=== PATIENT | female | born 1955 | race Native Hawaiian/Other Pacific Islander ===

== ENCOUNTER 2016-08-20 12:49 | Outpatient (CLI) | payer OTHER | END 2016-08-20 19:15 | disposition home or self-care (01) | LOC: MAMMO 12:49 | DX: Z12.31 Encounter for screening mammogram for malignant neoplasm of breast (principal) | CPT/HCPCS: G0202-TC ==

== ENCOUNTER 2016-11-04 13:09 | Outpatient (CLI) | payer OTHER ==
[2016-11-04 13:26] LABS: PLATELET COUNT 193 K/uL (152-353)
[2016-11-04 13:58] LABS: POTASSIUM 4.5 mmol/L (3.6-5.2); SODIUM 138 mmol/L (136-145)
== END 2016-11-04 20:00 | disposition home or self-care (01) ==
LOC: LAB 13:09
PROVIDERS: Nurse Practitioner Family
DX: Z00.00 Encounter for general adult medical examination without abnormal findings (principal); E78.4 Other hyperlipidemia; Z79.899 Other long term (current) drug therapy; E55.9 Vitamin D deficiency, unspecified; C34.90 Malignant neoplasm of unspecified part of unspecified bronchus or lung
CPT/HCPCS: 80053; 80061; 82306; 82607; 83036; 84439; 84443; 85027

== ENCOUNTER 2017-01-21 13:38 | Outpatient (CLI) | payer OTHER ==
[2017-01-21 14:02] LABS: PLATELET COUNT 226 K/uL (152-353)
[2017-01-21 14:27] LABS: POTASSIUM 4.4 mmol/L (3.6-5.2)
== END 2017-01-21 19:04 | disposition home or self-care (01) ==
LOC: LAB 13:38
PROVIDERS: Nurse Practitioner Family
DX: E78.4 Other hyperlipidemia (principal); K21.9 Gastro-esophageal reflux disease without esophagitis; E65 Localized adiposity; Z71.6 Tobacco abuse counseling; M81.0 Age-related osteoporosis without current pathological fracture; Z79.899 Other long term (current) drug therapy; Z51.81 Encounter for therapeutic drug level monitoring
CPT/HCPCS: 80053; 80061; 82306; 82607; 83036; 84436; 84443; 85027

== ENCOUNTER 2017-04-23 12:27 | Outpatient (CLI) | payer OTHER ==
[2017-04-23 15:01] LABS: PLATELET COUNT 230 K/uL (152-353)
[2017-04-23 15:13] LABS: POTASSIUM 4.3 mmol/L (3.6-5.2); SODIUM 138 mmol/L (136-145)
== END 2017-04-23 22:49 | disposition home or self-care (01) ==
LOC: LAB 12:27
PROVIDERS: Nurse Practitioner Family
DX: E78.4 Other hyperlipidemia (principal); K21.9 Gastro-esophageal reflux disease without esophagitis; Z79.899 Other long term (current) drug therapy; Z51.81 Encounter for therapeutic drug level monitoring
CPT/HCPCS: 80053; 80061; 83036; 84436; 84443; 85027

== ENCOUNTER 2017-07-22 14:30 | Outpatient (CLI) | payer OTHER ==
[2017-07-22 14:47] LABS: PLATELET COUNT 210 K/uL (152-353)
[2017-07-22 19:30] LABS: POTASSIUM 4.4 mmol/L (3.6-5.2)
== END 2017-07-22 19:51 | disposition home or self-care (01) ==
LOC: LAB 14:30
PROVIDERS: Nurse Practitioner Family
DX: E78.4 Other hyperlipidemia (principal); K21.9 Gastro-esophageal reflux disease without esophagitis; Z79.899 Other long term (current) drug therapy; Z51.81 Encounter for therapeutic drug level monitoring; Z72.0 Tobacco use
CPT/HCPCS: 80053; 80061; 83036; 84443; 85027

== ENCOUNTER 2017-08-22 09:55 | Outpatient (CLI) | payer OTHER | END 2017-08-22 22:59 | disposition home or self-care (01) | LOC: MAMMO 09:55 | DX: Z12.31 Encounter for screening mammogram for malignant neoplasm of breast (principal); Z13.820 Encounter for screening for osteoporosis; N95.8 Other specified menopausal and perimenopausal disorders ==

== ENCOUNTER 2017-10-28 13:53 | Outpatient (CLI) | payer OTHER ==
[2017-10-28 14:16] LABS: PLATELET COUNT 215 K/uL (152-353)
[2017-10-28 14:25] LABS: POTASSIUM 4.3 mmol/L (3.6-5.2)
== END 2017-10-28 19:53 | disposition home or self-care (01) ==
LOC: LAB 13:53
PROVIDERS: Nurse Practitioner Family
DX: E78.4 Other hyperlipidemia (principal); K21.9 Gastro-esophageal reflux disease without esophagitis; Z79.899 Other long term (current) drug therapy; Z51.81 Encounter for therapeutic drug level monitoring
CPT/HCPCS: 80053; 80061; 83036; 84436; 84443; 85027

== ENCOUNTER 2018-11-09 09:50 | Outpatient (CLI) | payer OTHER | END 2018-11-09 19:17 | disposition home or self-care (01) | LOC: RAD 09:50 | DX: R05 Cough (principal); F17.200 Nicotine dependence, unspecified, uncomplicated ==